=== PATIENT | female | born 1945 | race Caucasian/White ===

== ENCOUNTER → 2019-05-07 11:17 | Outpatient (CLI) | payer MEDICARE, OTHER, SELFPAY ==
--- NOTE | 2019-05-07 11:21 | BI_ITS ---
BILATERAL DIGITAL MAMMOGRAM WITH TOMOSYNTHESIS: Mediolateraloblique and craniocaudal views demonstrate no evidence of dominant parenchymal masses. No cluster of microcalcifications or architectural distortion is seen. No evidence of skin thickening is identified. Arterial calcifications are noted in the medial aspects of both breasts. There has been no significant change since 11/06/2016 . Breast Density: The breast tissue is extremely dense which may lower the sensitivity of mammography. CAD was used to assist in final assessment. BI/SCREEN MAMM (CAD) W/FAISAL BILAT IMPRESSION: NORMAL MAMMOGRAM BILATERALLY. ASSESSMENT CATEGORY: FINAL ASSESSMENT: BI-RAD CATEGORY I (NEGATIVE) YEARLY MAMMOGRAPHY RECOMMENDED Approximately 10% of breast cancers are not detected by mammography. A normal mammogram should not delay biopsy of a clinically suspicious abnormality. [id number] Electronically Signed: Hugo Gaytan, at 17:57 EDT Tel , Service support ,
== END ==
PROVIDERS: Family Provider Family Medicine; PCP Family Medicine; Referring Provider Family Medicine; Visit Provider Family Medicine
DX: Z12.31 Encounter for screening mammogram for malignant neoplasm of breast (principal)
CPT/HCPCS: 77063; 77067

== ENCOUNTER 2020-03-16 08:39 | Emergency (ER) | payer MEDICARE, OTHER, SELFPAY ==
[2020-03-16 08:41] VITALS: BP 162/103; PULSE 84; RESP 17; TEMP 35.7; O2SAT 96; BMI 29.2
--- NOTE | 2020-03-16 09:25 | CT_ITS ---
STUDY: CT ABDOMEN AND PELVIS WITHOUT CONTRAST REASON FOR EXAM: Female, 75 years old. LEFT BACK PAIN X1.5 WKS -- HX-COLON CA -- SURG-PARTIAL COLECTOMY,APPY RADIATION DOSAGE (If Supplied By Facility): CTDIvol = ( 14.98 ) mGy, DLP = ( 744.66 ) mGycm TECHNIQUE: Transaxial images were obtained from the dome of the diaphragm to the symphysis pubis without oral contrast, and without intravenous contrast. Sagittal and coronal images were reconstructed. Individualized dose optimization techniques were used for this CT. COMPARISON: None. FINDINGS: There are chronic interstitial fibrotic changes of the lung bases. The visualized portions of the heart are within normal limits. Normal liver. Normal gallbladder and extrahepatic biliary system. Normal spleen. Normal pancreas. Normal bilateral adrenal glands. Normal right kidney. There is 8 mm stone in left kidney without hydronephrosis. Normal visualized stomach. Normal small intestine. Partial colectomy with ileocolic anastomosis. There is diffuse atherosclerotic calcification of the abdominal aorta, without a demonstrated aneurysm. Normal inferior vena cava. Normal retroperitoneum. Normal urinary bladder. There is a small umbilical hernia containing small bowel loops without evidence of incarceration. There are diffuse degenerative changes of the visualized lumbar spine. CT/Abdomen/Pelvis without Cont IMPRESSION: There is 8 mm stone in left kidney without hydronephrosis. There is a small umbilical hernia containing small bowel loops without evidence of incarceration. Electronically Signed: Grant Garcia, at 11:04 EDT Tel , Service support ,
[2020-03-16 10:09] LABS: Absolute Lymphocyte Count 1.37 X10^3/uL (0.83-4.51); Absolute Neutrophil Count 1.8 X10^3/uL (2.0-7.7); Basophil# 0.01 X10^3/uL; Basophil% 0.3 % (0-1); Eosinophil# 0.02 X10^3/uL; Eosinophils% 0.5 % (0-5); Hematocrit 42.6 % (37-47); Hemoglobin 14.6 g/dL (12.0-15.0); Lymphocyte # 1.37 X10^3/ul (4.0); Lymphocyte % 36.6 % (19-41); Mean Corp Hgb Conc 34.3 g/dL (32-36); Mean Corpuscular Hgb 37.2 pg (27.0-32.0); Mean Corpuscular Volume 108.4 fL (81-99); Mean Platelet Vol. 10.7 fl (6.2-12.0); Monocyte# 0.54 X10^3/uL; Monocyte% 14.4 % (0-10); NRBC Flagged by Analyzer 0 % (0-5); Neutrophil # 1.77 X10^3/uL (2.7-7.7); Neutrophil % 47.4 % (47-70); Platelet Count 197 K/mm3 (150-450); RBC Distribution Width CV 12.8 % (11.6-14.6); RBC Distribution Width SD 50.8 fl (35.1-43.9); Red Blood Count 3.93 M/mm3 (4.2-5.4); White Blood Count 3.7 K/mm3 (4.4-11.0)
--- NOTE | 2020-03-16 10:18 | NURSING ---
GREEN TOP, HEMOLIZED
[2020-03-16 10:30] LABS: Bacteria 0 SEEN /hpf (None Seen); Mucous, Urine 0 SEEN /hpf (<or=2+); Red Blood Cells-Urine 0 SEEN /hpf (0-5)
[2020-03-16 10:32] LABS: Color, Urine Yellow (Yellow); Glucose, Dipstick Normal (Normal); Ketone-Dipstick Negative (Negative); Leukocyte Esterase-Dipstick 100 /ul (Negative); Nitrite-Dipstick Negative (Negative); Occult Blood-Urine Negative /ul (Negative); Protein-Dipstick Negative (Negative); Urine Bilirubin Dipstick Negative (Negative); Urine Clarity Sl. Cloudy (Clear); Urine Urobilinogen Normal (Normal)
[2020-03-16 10:48] LABS: Squamous Epithelial Cells - UA 0-5 SEEN /hpf (5-10); White Blood Cells 0-5 SEEN /hpf (0-5)
[2020-03-16 11:03] VITALS: RESP 16
[2020-03-16 11:04] LABS: Anion Gap 7 (5-15); BUN 11 mg/dL (7-18); BUN/Creat Ratio 13.3 RATIO (10-20); Calcium,Total 8.6 mg/dL (8.5-10.1); Chloride 109 mmol/L (98-107); Creatinine, Serum 0.83 mg/dL (0.55-1.02); EST Glomerular Filtration Rate 72 mL/min (>60); Est Glom Filt Rate - Afr Amer 87 mL/min (>60); Estimated Creatinine Clearance 62.15 ml/min; Glucose 98 mg/dL (74-106); Potassium 4.1 mmol/L (3.5-5.1); Sodium Level 142 mmol/L (136-145)
--- NOTE | 2020-03-16 11:28 | ED.DCSUM_ITS ---
- ER Visit Summary Date of Service: 03/16/20 Chief Complaint: [Back pain] History of Present Illness: The patient is a 75 F [presents the emergency department with back pain for 2 weeks. Patient states the pain, came on gradually. She currently rates it a 7 out of 10. Patient feels like it is more in her lower back more left-sided except when she is moving and bending she will feel it more in the center of her back. Patient denies fevers. She has had some mild dysuria and thinks there may be a little bit of odor to the urine. She denies any fever or cough. Patient has history of sarcoidosis as well as remote history of colon cancer 5 years ago. 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 She has had kidney stones in the past.] Physical Examination: [HEENT-PERRLA, EOMI, cranial nerves II through XII intact. Mucous membranes moist. Cardiovascular-heart regular rate and rhythm without murmur on auscultation. Lungs-clear to auscultation bilaterally. Chest wall stable. No crepitus or subcu emphysema noted. Abdomen-NABS, no tenderness on exam. No rebound, no rigidity, no peritoneal signs, no masses Back exam-patient has some mild diffuse tenderness over the lumbar spine as well as the left lumbar paraspinal musculature. Negative straight leg raise bilaterally. Deep tendon reflexes are plus 2 out of 4 bilaterally at the patella and Achilles. Patient has normal L5 extension bilaterally. Patient has normal sensation to light touch. Patient does have a faint subtle rash that is slightly papular and erythematous over the left lumbar paraspinal region that does not cross the midline which I suspect could be early shingles.] Test Results: [CBC with it showing a 3.7, hemoglobin 14.6, hematocrit 43, plates 187. Chemistries unremarkable. Urinalysis was normal. CT flank showed an 8 mm stone in the left kidney otherwise nothing significant. Patient had degenerative changes of the spine.] Emergency Department Course and Treatment: [She refused any pain medication. Sh jaimee had an IV line established on arrival.] Treatment Plan: [Patient does not want a thing for pain for home. She does not want an antiviral for suspected shingles. Patient has had the shingles vaccine in the past. She will follow-up with her primary care physician and varnish dipper.] Disposition: [Discharged home in stable condition] Impression: [Back pain-etiology uncertain] This note was generated with [employer] dictation software. It may contain incorrect words, spelling, and punctuation that were not noted in review of the chart prior to signing ED Disposition - Plan for ED Patient: Referrals: Celestine To MD [Primary Care Provider] -
--- NOTE | 2020-03-16 11:33 | ED.DEP ---
ED Disposition - Plan for ED Patient: Instructions: ED Flank Pain Uncertain Cause, ED Spasm Back No Trauma Referrals: Celestine To MD [Primary Care Provider] - 5-7 Days
== END 2020-03-16 11:48 | disposition home or self-care (01) ==
LOC: ED 09:31
PROVIDERS: Emergency Provider Emergency Medicine; PCP Family Medicine
DX: M54.9 Dorsalgia, unspecified (principal); Z79.01 Long term (current) use of anticoagulants; Z86.718 Personal history of other venous thrombosis and embolism
CPT/HCPCS: 74176; 80048; 81001; 85025; 99282; A4216

== ENCOUNTER 2024-12-01 12:47 | Emergency (ER) | payer MEDICARE, OTHER, SELFPAY ==
[2024-12-01 12:49] VITALS: BP 170/100; PULSE 70; RESP 18; TEMP 36.3; O2SAT 98
--- NOTE | 2024-12-01 13:09 | ED.VIS.FALL ---
HPI HPI - Fall History of Present Illness Chief Complaint: Fall PFSH PFS Medical History (Updated 12/01/24 @ 14:[address] Piyush Johansen, DO) History of cataract Heart disease High triglycerides High cholesterol Hypertension Incisional hernia Hiatal hernia Sarcoidosis History of colon cancer Home Medications ?Medication ?Instructions ?Recorded ?Last Taken ?Type flecainide 50 mg tablet 50 mg PO BID 05/06/14 12/01/24 History rivaroxaban 15 mg tablet (Xarelto) 20 mg PO DAILY 08/11/14 12/01/24 History latanoprost 0.005 % eye drops 1 drp DAILY 06/26/17 12/01/24 History leucovorin calcium 5 mg tablet 5 mg PO TRINH 06/26/17 11/29/24 History magnesium 250 mg tablet 250 mg PO DAILY 06/26/17 12/01/24 History methotrexate sodium 2.5 mg tablet 4 tab PO SA 06/26/17 11/28/24 History lidocaine 4 % topical patch 1 patch topical DAILY PRN pain 04/18/21 Unknown History (Lidocaine Pain Relief) artificial tears(hypromellose) 0.3 1 drp EACH EYE BID PRN dry eyes 12/01/24 Unknown History % eye drops metoprolol succinate 25 mg 25 mg PO BID 12/01/24 12/01/24 History tablet,extended release 24 hr multivitamin (Daily Multi-Vitamin 1 tab PO DAILY 12/01/24 11/30/24 History tablet) psyllium husk 3.4 gram/5.4 gram 1 tbsp PO BID 12/01/24 12/01/24 History oral powder (Metamucil) tadalafil 20 mg tablet 40 mg PO DAILY 12/01/24 12/01/24 History vitamin B complex (Complex B-100 1 tab PO DAILY 12/01/24 11/30/24 History tablet,extended release) Allergy/AdvReac Type Severity Reaction Status Date / Time iodine Allergy Rash Verified 12/01/24 12:49 shrimp Allergy NEEDS Verified 12/01/24 12:49 FOLLOW-UP atorvastatin (From Lipitor) AdvReac Intermediate joint pain Verified 12/01/24 12:49 Family History (Updated 04/18/21 @ 09:53 by Brooklynn Capone) Other CVA (cerebral vascular accident) Heart disease High cholesterol Hypertension Parkinson disease Seizures Surgical History History of hernia repair History of heart valve repair History of tonsillectomy History of colon surgery Social History (Updated 04/18/21 @ 09:54 by Brooklynn Capone) Smoking Status: Former smoker alcohol intake: current alcohol intake frequency: 0-2 drinks per day substance use type: does not use what type of physical activity do you participate in: walking and yoga frequency: 5-6 times per week EXAM Physical Exam Const Vital Signs: 12/01/24 12:49 12/01/24 13:13 Temperature 97.4 F L Temperature Source Temporal Pulse Rate 70 Respiratory Rate 18 Respiratory Effort Normal Non-Labored Respiratory Depth Normal Respiratory Pattern Normal Blood Pressure 170/100 H Blood Pressure Mean 123 Pulse Ox 98 Oxygen Delivery Method Room Air Room Air MDM MDM MDM Narrative Medical decision making narrative: HISTORY OF PRESENT ILLNESS: Chief complaint: Fall, head trauma, right knee pain hip pain 79-year-old female presents with fall. Patient notes she is on Xarelto secondary to VTE. The patient states she had mechanical fall from standing. No she missed a step. Notes she struck her head hitting her lip. Also complains of right knee and left knee pain. Denies loss of consciousness. Denies vomiting. Denies hip pain back pain neck pain or upper extremity pain REVIEW OF SYSTEMS: Pertinent positives: Bilateral knee pain, lip injury Pertinent negatives: Hip pain PHYSICAL EXAM: Nursing triage notes reviewed, Vital signs reviewed Primary Survey Airway: Intact Breathing: Bilateral breath sounds Circulation: Palpable bilateral femorals, Palpable bilateral radial, Palpable bilateral DP and Palpable bilateral PT Disability / Spine precautions GCS Score: Eye Openin Verbal Response: 5 Motor Response: 6 Secondary Survey Constitutional: Please see MDM Head: Atraumatic, Midface stable, NO jaw malocclusion, No Cephalohematoma, and No Lacerations noted Eye: Pupils equal round and reactive to light, Extraocular muscles intact and No periorbital ecchymosis or stepoff, no evidence of entrapment ENT: Oropharynx clear, no lacerations, no hemotympanum, no raccoon eyes or phoenix sign Cervical spine / Neck: No cervical spine bony tenderness, crepitance, or stepoff deformity Trachea midline Lungs: Clear to auscultation, No asymmetric rise and No crepitus, no flail chest Cardiac: Regular rate and rhythm and No murmurs Abdomen: Soft, Nontender and No rebound Pelvis: Pelvis stable to compression : No evidence of genital injury Back: No midline bony tenderness to thoracic/lumbar/sacral spines Neuro: At baseline, intact strength and sensation in bilateral upper and lower extremities. 2+ patellar reflexes bilaterally. NIH 0. ICH score 0 Extremities: NO gross Deformities Psych: Normal affect Nursing triage notes reviewed, Vital signs reviewed MEDICAL DECISION MAKING: Chief Complaint: please see HPI External records reviewed: Reviewed prior imaging studies. Reviewed prior medications Factors affecting care: VTE on Xarelto Social determinants of health: none History obtained from others: none Consults: Trauma surgery (Dr. Sanchez), emergency medicine (Dr. Olmstead). MDM Narrative: The patient was initially hypertensive with blood pressure 170/100 otherwise afebrile. Primary secondary trauma survey concerning for the following differential I considered the following differential diagnosis: ICH (given head trauma and blood thinner), knee fracture dislocation Offered pain medicine initially however patient refused ALL IMAGES (IF OBTAINED) HAVE BEEN PERSONALLY REVIEWED AND INTERPRETED BY MYSELF. CT scan of the brain shows a small area approximately 3 mm hyperdensity left basal ganglia concerning for microhemorrhage. Given fall, blood thinner will attempt to transfer to nearest trauma center. X-rays of bilateral knees were read and reviewed personally by myself showed no acute fracture or dislocation radiologist agreed my interpretation Given Xarelto, concern for hemorrhage and trauma patient will be transferred to nearest trauma center. Discussed with ER physician Dr. Olmstead. ALso discussed with Dr. Sanchez (trauma) Antibiogram 30, systolic blood pressure Less than 140. Kcentra was given for anticoagulation reversal. Transport was arranged. Chose expedited ground transport secondary to inability to fly given weather. Signed out to p.m. physician pending transport. The patient and/or family, caregivers express understanding. The patient and/or family, caregivers agrees with the plan. Shared decision making: I will have a discussion with the patient and or visitors regarding risk/benefits of further testing or admission. They will be made aware of of the risk/benefits inherent in this decision they will be given the opportunity to voice understanding. Total critical care time today provided was at least 60 minutes. This excludes separately billable procedures. Critical care time (if documented) is secondary to the patient having high probability of clinically significant/life threatening deterioration in the patient's condition which required my urgent intervention. Impression: 1. Intracranial hemorrhage 2. Chronic anticoagulation Dispo: Transfer to [facility] This note was generated with [employer] dictation software. It may contain incorrect words, spelling, and punctuation that were not noted in review of the chart prior to signing. Radiography Diagnostic Testing: Clinical Impression(s) from Imaging Studies Brain CT 12/01/24 13:18 IMPRESSION: 1. Punctate 3 mm high-density focus within the LEFT basal ganglia, difficult to definitively characterize as calcification, possible on a technical basis as above, however unable to entirely exclude tiny parenchymal microhemorrhage. Notably this is a typical area for mineralization. Consider short interval follow-up to assess stability. No mass-effect or appreciable surrounding edema. 2. Additional description as above. Reading Location: [facility] Knee X-Ray 12/01/24 13:35 IMPRESSION: 1. Demineralization without visible acute displaced fracture.. 2. Additional description as above. Reading Location: [facility] Discharge Plan Triage Chief Complaint: Fall ED Provider: Piyush Johansen Dx/Rx/DC Orders Clinical Impression: Traumatic hemorrhage of basal ganglia Prescriptions: No Action lidocaine [Lidocaine Pain Relief] 4 % adhesive patch,medicated 1 patch topical DAILY PRN (Reason: pain) flecainide 50 MG tablet 50 mg PO BID Patient Comments: Xarelto 15 MG tablet 20 mg PO DAILY latanoprost 0.005 bottle 1 drp Each Eye DAILY Patient Comments: methotrexate sodium 2.5 tablet 4 tab PO SA leucovorin calcium 5 MG tablet 5 mg PO TRINH Rx Instructions: TAKE DAY AFTER METHOTREXATE magnesium 250 MG tablet 250 mg PO DAILY tadalafil 20 mg tablet 40 mg PO DAILY multivitamin [Daily Multi-Vitamin] Tablet 1 tab PO DAILY metoprolol succinate 25 mg tablet extended release 24 hr 25 mg PO BID Metamucil 3.4 gram/5.4 gram powder 1 tbsp PO BID Rx Instructions: mix into at least 8 oz of water or juice before administering Complex B-100 Tablet Extended Release 1 tab PO DAILY artificial tears(hypromellose) 0.3 % drops 1 drp EACH EYE BID PRN (Reason: dry eyes) Primary Care Provider: Colby Dasilva Referrals: Colby Dasilva MD [Primary Care Provider] - Print Language: Armenian Disposition Disposition: Acute Care Hospital Discharge Location: [facility]
[2024-12-01 13:12] VITALS: BMI 30.1
--- NOTE | 2024-12-01 13:18 | CT_ITS ---
PROCEDURE: BRAIN/HEAD WITHOUT CONTRAST, 12/01/2024 REASON FOR EXAM: TRAUMA COMPARISON: None TECHNIQUE: CT head was performed without IV contrast. Multiplanar reformats were generated. RADIATION DOSE SUMMARY: CTDlvol: 47.06 mGy DLP: 837.39 mGycm One or more dose reduction techniques were used (e.g., Automated exposure control, adjustment of the mA and/or kV according to patient size, use of iterative reconstruction technique). FINDINGS: Cerebrum: Punctate likely calcification in the LEFT caudate reaching maximum attenuation 178 HU. Additional punctate 3 mm hyperdensity in the LEFT basal ganglia, difficult to definitively characterize as calcification potentially due to tiny size and associated volume averaging, maximum attenuation 75 HU. No mass-effect or appreciable surrounding edema. No visible acute infarct or mass. Mild cerebral atrophy. Remote appearing infarct in the LEFT frontoparietal garcia radiata/centrum semiovale. Moderate background patchy supratentorial white matter hypoattenuation, nonspecific but compatible with chronic microvascular ischemic changes. Cerebellum/brainstem: Unremarkable. Note slight limitation due to beam hardening artifact. Ventricles/extra-axial spaces: Age-appropriate appearance.. Paranasal sinuses/mastoid air cells: Unremarkable. Scalp/calvarium: Unremarkable. Other: Intracranial atherosclerosis. Bilateral cataract surgery.. CT/Brain/Head without Contrast IMPRESSION: 1. Punctate 3 mm high-density focus within the LEFT basal ganglia, difficult to definitively characterize as calcification, possible on a technical basis as above, however unable to entirely exclude tiny parenchymal microhemorrhage. Notably this is a typical area for mineralization. Consider short interval follow-up to assess s tability. No mass-effect or appreciable surrounding edema. 2. Additional description as above. Reading Location: [id number]
--- NOTE | 2024-12-01 13:18 | RAD_ITS ---
PROCEDURE: KNEE 4 OR MORE VIEWS, 12/01/2024 REASON FOR EXAM: PAIN AFTER FALL TECHNIQUE: AP, lateral, AP tunnel, and sunrise views of the RIGHT knee were obtained. COMPARISON: None FINDINGS: Fracture/dislocation: None visible. Joint space(s): Severe loss of lateral patellofemoral joint space with small osteophytes. Very mild loss of lateral compartment joint space trace osteophytes. Soft tissues: Atherosclerosis. Suspect soft tissue swelling in the prepatellar region. Foreign bodies: None visible. Bone mineralization: Demineralization. Other: None. RAD/Knee 4 or More Views IMPRESSION: 1. Demineralization without visible acute displaced fracture.. 2. Suspect soft tissue swelling in the prepatellar region. Correlate with exam . 3. Additional description as above. Reading Location: [id number]
--- NOTE | 2024-12-01 13:35 | RAD_ITS ---
PROCEDURE: KNEE 4 OR MORE VIEWS, 12/01/2024 REASON FOR EXAM: FALL, PAIN TECHNIQUE: AP, lateral, AP tunnel, and sunrise views of the LEFT knee were obtained COMPARISON: None FINDINGS: Fracture/dislocation: None visible. Joint space(s): Severe virtually complete loss of joint space along the lateral patellofemoral joint space which is preserved medially. Relatively preserved medial and lateral compartment joint space. Soft tissues: Unremarkable. Foreign bodies: None visible. Bone mineralization: Demineralization. Other: Few presumed bone islands in the proximal tibia. RAD/Knee 4 or More Views IMPRESSION: 1. Demineralization without visible acute displaced fracture.. 2. Additional description as above. Reading Location: [id number]
[2024-12-01 15:10] VITALS: BP 172/84; PULSE 80; RESP 14; O2SAT 98
[2024-12-01] MEDS: HUM PROTHROMBIN CPLX LANS IV (15:24)
[2024-12-01] MEDS: VIAFLEX IV (15:24)
[2024-12-01 15:30] LABS: Absolute Neutrophil Count 2.2 X10^3/uL (2.0-7.7); Basophil# 0.01 X10^3/uL; Basophil% 0.2 % (0-1); Hematocrit 41.3 % (37-47); Lymphocyte % 33.7 % (19-41); Mean Corp Hgb Conc 33.9 g/dL (32-36); Mean Corpuscular Volume 100.2 fL (81-99); Mean Platelet Vol. 10.3 fl (6.2-12.0); Monocyte# 0.56 X10^3/uL; Monocyte% 13.5 % (0-10); NRBC Flagged by Analyzer 0 % (0-5); Neutrophil # 2.16 X10^3/uL (2.7-7.7); Neutrophil % 51.9 % (47-70); Platelet Count 166 K/mm3 (150-450); RBC Distribution Width CV 13.2 % (11.6-14.6); RBC Distribution Width SD 48.5 fl (35.1-43.9); Red Blood Count 4.12 M/mm3 (4.2-5.4); White Blood Count 4.2 K/mm3 (4.4-11.0)
[2024-12-01 15:33] VITALS: BP 166/84; PULSE 85; RESP 16; TEMP 36.6; O2SAT 98
--- NOTE | 2024-12-01 15:41 | ED.RN ---
Pt declines second dose of Labetolol, states it's white coat syndrome. Pt concerned blood pressure will drip too low as it has in the past.
[2024-12-01 15:45] LABS: International Normalized Ratio 1.3; Prothrombin Time (Protime)PT. 16.3 SECONDS (11.7-14.9)
[2024-12-01 15:46] LABS: Partial Thromboplast Time 32.7 Seconds (24.1-36.2)
[2024-12-01 16:22] LABS: Anion Gap 14 (5-15); BUN 10 mg/dL (4-19); BUN/Creat Ratio 13.4 RATIO (10-20); Calcium,Total 9.1 mg/dL (7.6-11.0); Carbon Dioxide 20.1 mmol/L (21.0-32.0); Chloride 102 mmol/L (98-108); Creatinine, Serum 0.77 mg/dL (0.70-1.20); EST Glomerular Filtration Rate 78 (>60); Estimated Creatinine Clearance 68.46 ml/min (50-250); Glucose 89 mg/dL (70-99); Potassium 4.2 mmol/L (3.3-5.1); Sodium Level 136 mmol/L (133-145)
== END 2024-12-01 16:00 | disposition short-term general hospital (02) ==
PROVIDERS: Emergency Provider Emergency Medicine; PCP Family Medicine; Visit Provider Emergency Medicine
DX: S06.350A Traumatic hemorrhage of left cerebrum without loss of consciousness, initial encounter (principal); W18.39XA Other fall on same level, initial encounter; I10 Essential (primary) hypertension; Z79.01 Long term (current) use of anticoagulants; Z79.899 Other long term (current) drug therapy; Z86.718 Personal history of other venous thrombosis and embolism; Z87.891 Personal history of nicotine dependence
CPT/HCPCS: 70450; 73564; 80048; 85025; 85610; 85730; 96365; 96375; 99283; A4216; J7165